=== PATIENT | female | born 1950 | race Caucasian/White ===

== ENCOUNTER → 2016-10-22 | Outpatient (CLI) | payer BC ==
--- NOTE | ~2016-10-22 | PUL ---
PATIENT'S NAME: JOHANNE ALVAREZ [facility] AGE: 66 Y [address] ROOM: [place] [address] LOCATION: [facility] ADMIT DATE: 10/22/2016 Pulmonary DISCHARGE DATE: FAMILY PHYSICIAN: Jessica Valadez MD ATTENDING PHYSICIAN: NATALIE SAUL NAME OF PROCEDURE: Pulmonary Function Test DATE OF PROCEDURE: October 22, 2016 TECH: ATripe, BAR HELPER REASON FOR EXAM: Dermatomyositis RESULTS: 1. FVC was 3.6 liters which is 105% of predicted and normal, FEV1 was 2.76 liters which is 105% of predicted and normal, and FEV1/FVC was 77% and normal. The flow volume curve did not reveal any significant airflow limitation. After bronchodilator administration FVC increased to 3.69 liters which is a 2% increase, and FEV1 decreased to 2.69 liters. FEV1/FVC was 73%. 2. DLCO was 15 with an adjusted DLCO of 15.5 which is 71% of predicted and normal. 3. Total lung capacity was 5.47 liters which is 104% of predicted and normal, and residual volume was 1.62 liters which is 79% of predicted and normal. PHYSICIAN: The patient has no airflow limitation and no significant bronchodilator response. Her diffusion capacity is within normal limits. There is no evidence of restrictive lung disease. MD CONCEPCIÓN HARTMAN/terrance /[id number] dtt: 10/27/16 1615 , LINDEN WARD dtd: 10/27/16 1508
== END | disposition disaster alternative care site (69) ==
LOC: GRAD 10-01 13:30
DX: M33.10 Other dermatomyositis, organ involvement unspecified (principal); R91.8 Other nonspecific abnormal finding of lung field; I77.819 Aortic ectasia, unspecified site; Z98.890 Other specified postprocedural states
CPT/HCPCS: Q9967

== ENCOUNTER → 2016-11-11 | Outpatient (CLI) | payer BC ==
--- NOTE | ~2016-11-11 | NDGEN ---
PATIENT'S NAME: [facility] AGE: 66 Y [address] ROOM: [place] [id number] LOCATION: [facility] ADMIT DATE: 11/11/2016 Neurodiagnostics DISCHARGE DATE: FAMILY PHYSICIAN: Jessica Valadez MD ATTENDING PHYSICIAN: PHILLIP BLISS PROCEDURE: NERVE CONDUCTION EMG OF THE BILATERAL UPPER AND LOWER EXTREMITIES. THE PATIENT HAD THIS EMG NERVE CONDUCTION STUDY DONE ON 11/11/2016. DATE OF PROCEDURE: 11/11/2016 INDICATION: This 66-year-old female patient is currently being treated for dermatomyositis. The patient in the past did have some complaints about some hand weakness, but I did not appreciate any focal weakness in the hands, forearms, and intrinsic fingers, proximal muscles of the upper extremity nor any focal weakness of the lower extremities. The patient has no history currently to suggest focal weakness in getting up from a chair or toilet seat. She is ambulating normally. DESCRIPTION: This EMG nerve conduction study was done essentially to look for any evidence to suggest myositis. That being, we look for evidence for abnormal spontaneous electrical activity such as positive sharp waves and fibrillation potentials, or increased insertional activity. Furthermore, voluntary recruitment of motor unit action potentials were examined for any evidence of myopathic potentials and the pattern of possible early recruitment. Nerve conduction studies were performed in the bilateral upper and lower extremities including stimulating the median and ulnar nerves of the bilateral upper extremities and the median ulnar sensory nerves. In the lower extremities, the tibial nerves and the peroneal nerves were stimulated as well as the superficial nerves including the sural nerves were all examined as well as F-wave studies performed. In the motor nerves studied, there was normal motor onset latencies, normal amplitudes and normal conduction velocities seen. In the sensory nerves, there were normal sensory nerve action potential amplitudes and velocities with normal peak onset latencies. F-wave studies were performed in the upper and lower extremities and all were within normal limits for their expected time for the patient's age and height. Next, needle EMG was placed into the bilateral upper extremities including the cervical paraspinal muscles. The deltoid biceps, triceps, and intrinsic hand muscles including abductor pollicis brevis symmetric bilaterally. In the lower extremities, the needle was also placed into the vastus lateralis, tibialis anterior, and the medial gastrocnemius muscles. All muscles revealed normal PATIENT'S NAME: [facility] AGE: 66 Y [address] ROOM: [place] [address] LOCATION: [facility] ADMIT DATE: 11/11/2016 Neurodiagnostics DISCHARGE DATE: FAMILY PHYSICIAN: Jessica Valadez MD ATTENDING PHYSICIAN: PHILLIP BLISS recruitment pattern of motor unit action potentials. There was normal sizes and durations of these motor units and no evidence for early recruitment pattern that might be seen in the certain myopathies. There was no increase in electrical activity with the needle insertion and no irritability seen in these muscles. At rest, needles were placed in multiple places of these muscles and there was no obvious evidence of spontaneous electrical activity such as positive sharp waves or fibrillation potentials. IMPRESSION: The motor and sensory nerve conduction studies and F-wave studies of the bilateral upper extremities were normal. Needle EMG of the bilateral upper and lower extremities were also normal with no evidence of spontaneous electrical activity such as positive sharp waves or fibrillation potentials or insertional or increased insertional activity. There was a normal recruitment pattern with no evidence of early recruitment pattern and the voluntary recruitment showed normal sizes of motor unit action potentials with normal durations of these motor unit action potentials. Based upon these studies, there was no evidence to support any focal neuropathy nor was there evidence to support an active myopathy based upon the patient's voluntary recruitment pattern as well as the muscles at rest. MD GENTRY AVELAR/dinahl /[id number] dtt: 11/12/16 1415 , PHILLIP BLISS. dtd: 11/11/16 1933
== END | disposition disaster alternative care site (69) ==
LOC: GNEU 16:00
DX: R29.898 Other symptoms and signs involving the musculoskeletal system (principal)